=== PATIENT | female | born 1975 ===

== ENCOUNTER 2024-11-25 12:00 | Inpatient (IN) | payer OTHER ==
[~2024-11-25] VITALS: Ht 157.5 cm; Wt 69.9 kg
[2024-11-25] MEDS ORDERED: CLONAZEPAM0.5 M1 PO (13:50)
[2024-11-25] MEDS ORDERED: BUSPIRONE HCL10 MG PO (13:51)
[2024-11-25] MEDS ORDERED: FLONASE16 GM (13:51)
[2024-11-25] MEDS ORDERED: BREO ELLIPTA 21 EACH IH (13:53)
[2024-11-25] MEDS ORDERED: MAXALT10 MG PO (13:54)
[2024-11-25] MEDS ORDERED: ATORVASTATIN CA10 MG PO (13:54)
[2024-11-25] MEDS ORDERED: CYMBALTA60 MG PO (13:54)
[2024-11-25] MEDS ORDERED: PREVACID15 M1 PO (13:55)
[2024-12-01] MEDS ORDERED: METRONIDAZOLE/SODIUM CHLORIDE 500 MG/100 ML PIGGYBACK IV ONE (10:20)
[2024-12-01] MEDS ORDERED: CEFTRIAXONE SODIUM 2,000 MG VIAL ONE (10:20)
[2024-12-01] MEDS ORDERED: LIDOCAINE HCL 1%/EPINEPHRINE 20ML VIAL IJ ONE (11:13)
[2024-12-01] MEDS ORDERED: BUPIVACAINE HCL/MPF 0.5% 30ML VIAL ONE (11:13)
[2024-12-01] MEDS ORDERED: HYOSCYAMINE SULFATE 0.125 MG TAB.SUBL SL SCH (17:00)
[2024-12-01] MEDS ORDERED: CELECOXIB 200 MG CAPSULE PO SCH (17:00)
[2024-12-01] MEDS ORDERED: GABAPENTIN 300 MG CAPSULE PO SCH (17:00)
[2024-12-01] MEDS ORDERED: POLYETHYLENE GLYCOL 3350 17 GM BLIST.PACK PO SCH (17:00)
[2024-12-01] MEDS ORDERED: RINGERS SOLUTION,LACTATED 1,000 ML IV SCH (17:00)
[2024-12-01] MEDS ORDERED: MORPHINE SULFATE 4 MG/ML CARTRIDGE IV PRN (17:00)
[2024-12-01] MEDS ORDERED: OxyCODONE HCL 5 MG TABLET (ROXICODONE) PO PRN (17:00)
[2024-12-01] MEDS ORDERED: METOCLOPRAMIDE HCL 5 MG/ML VIAL IV SCH (17:00)
[2024-12-01] MEDS ORDERED: ONDANSETRON HCL 2 MG/ML VIAL IV PRN (17:00)
[2024-12-01] MEDS ORDERED: SIMETHICONE 125 MG CAPSULE PO SCH (17:00)
[2024-12-01] MEDS ORDERED: ONDANSETRON HCL 2 MG/ML VIAL IV ONE (17:30)
[2024-12-01] MEDS ORDERED: MORPHINE SULFATE 4 MG/ML VIAL IV ONE (17:30)
[2024-12-01] MEDS ORDERED: ONDANSETRON HCL 2 MG/ML VIAL ONE (17:32)
[2024-12-01 17:44] LABS: HEMATOCRIT 41.3 % (36.0-45.00); HEMOGLOBIN 14.1 g/dL (12.0-15.00); MEAN CELL VOLUME 91.2 fL (80.00-100.00); MEAN CORPUSCULAR HEMOGLOBIN 31.2 pg (27.00-32.0); MEAN CORPUSCULAR HGB CONC 34.2 g/dl (32.0-36.0); PLATELET COUNT 156 K/uL (150-450); RED BLOOD COUNT 4.53 M/uL (4.00-6.00); RED CELL DISTRIBUTION WIDTH 13.8 % (11.5-14.5)
[2024-12-01] MEDS ORDERED: METOCLOPRAMIDE HCL 5 MG/ML VIAL ONE (17:54)
[2024-12-01 18:35] VITALS: BP 144/84; O2SAT 98
[2024-12-01] MEDS ORDERED: ACETAMINOPHEN 500 MG GEL..CAP PO SCH (20:00)
[2024-12-01] MEDS ORDERED: ALBUTEROL SULFATE 3 ML/2.5 MG AMPUL.NEB IH SCH (20:12)
[2024-12-01] MEDS ORDERED: FAMOTIDINE/PF 20 MG/2 ML VIAL IV PUSH SCH (21:00)
[2024-12-01 23:00] VITALS: O2SAT 94
[2024-12-02] VITALS (9 sets, daily range): BP systolic 117–136; BP diastolic 74–82; O2SAT 90–98
[2024-12-02 07:59] LABS: HEMATOCRIT 40.2 % (36.0-45.00); HEMOGLOBIN 13.7 g/dL (12.0-15.00); MEAN CELL VOLUME 91.5 fL (80.00-100.00); MEAN CORPUSCULAR HEMOGLOBIN 31.3 pg (27.00-32.0); MEAN CORPUSCULAR HGB CONC 34.2 g/dl (32.0-36.0); PLATELET COUNT 162 K/uL (150-450); RED BLOOD COUNT 4.39 M/uL (4.00-6.00); RED CELL DISTRIBUTION WIDTH 13.5 % (11.5-14.5)
[2024-12-02 08:23] LABS: ALBUMIN 3.6 gm/dL (3.4-5.0); CALCIUM 8.6 mg/dL (8.5-10.1); CREATININE SERUM 0.76 mg/dL (0.55-1.02); GFR 80.23; MAGNESIUM 1.9 mg/dL (1.8-2.4); PHOSPHOROUS 2.9 mg/dL (2.5-4.9); POTASSIUM 3.94 mEq/L (3.5-5.1)
[2024-12-02] MEDS ORDERED: LACTOBACILLUS ACIDOPHILUS 1 CAP CAP PO SCH (09:00)
[2024-12-02] MEDS ORDERED: PATIENTS OWN MEDICATION (MEDICAMENTO EN PISO) PO SCH (09:00)
[2024-12-02] MEDS ORDERED: Pregabalin 50 MG,Pregabalin 25 MG PO SCH (09:00)
[2024-12-02] MEDS ORDERED: LACTULOSE 20 G/30 ML BLIST.PACK PO SCH (09:00)
[2024-12-02] MEDS ORDERED: Pregabalin 25 MG CAPSULE PO SCH (09:00)
[2024-12-02 10:32] LABS: ABG PH 7.421 (7.35-7.45); ABG PO2 77.4 mmHg (80-100); ABG pCO2 40.6 mmHg (35-45); BASE EXCESS 1.3 mmol/l; BICARBONATE 25.8 mmol/l (23-25); SaO2 95.6 %; Tco2 27.1 mmol/l
[2024-12-02 10:35] LABS: allen test SATISFACTORY; mode ROOM AIR; o2 21 %; puncture site RADIAL RIGHT
[2024-12-02] MEDS ORDERED: ENOXAPARIN SODIUM 40 MG/0.4 ML SYRINGE SUBCUTANEO SCH (17:00)
[2024-12-02] MEDS ORDERED: ATORVASTATIN CALCIUM 10 MG TABLET PO SCH (17:00)
[2024-12-03] VITALS (8 sets, daily range): BP systolic 110–123; BP diastolic 67–79; O2SAT 89–99
[2024-12-03 08:18] LABS: HEMATOCRIT 35.6 % (36.0-45.00); HEMOGLOBIN 12.4 g/dL (12.0-15.00); MEAN CELL VOLUME 91.6 fL (80.00-100.00); MEAN CORPUSCULAR HEMOGLOBIN 31.8 pg (27.00-32.0); MEAN CORPUSCULAR HGB CONC 34.7 g/dl (32.0-36.0); PLATELET COUNT 145 K/uL (150-450); RED BLOOD COUNT 3.89 M/uL (4.00-6.00)
[2024-12-03] MEDS ORDERED: ENOXAPARIN SODIUM 40 MG/0.4 ML SYRINGE SUBCUTANEO SCH (09:00)
[2024-12-03 09:04] LABS: CALCIUM 8.2 mg/dL (8.5-10.1); CREATININE SERUM 0.72 mg/dL (0.55-1.02); GFR 85.4; PHOSPHOROUS 3.1 mg/dL (2.5-4.9); POTASSIUM 4.26 mEq/L (3.5-5.1)
[2024-12-04 00:45] VITALS: BP 95/59; O2SAT 96
[2024-12-04 00:50] VITALS: O2SAT 97
[2024-12-04 05:15] VITALS: O2SAT 97
[2024-12-04 08:00] VITALS: BP 127/81; O2SAT 98
[2024-12-04 09:35] VITALS: O2SAT 95
== END 2024-12-04 14:51 | disposition home or self-care (01) | DRG 330 ==
LOC: O/R 12-01 06:00 → SURH 12-01 07:00 → SURG 12-01 15:09 → SURH 12-01 20:19
PROVIDERS: Internal Medicine Geriatric Medicine; ADMIT Colon & Rectal Surgery; ATTEND Colon & Rectal Surgery
PROC: 0DBP4ZZ Excision of Rectum, Percutaneous Endoscopic Approach (ICD-10-PCS; 2024-12-01)
PROC: 0DJD8ZZ Inspection of Lower Intestinal Tract, Via Natural or Artificial Opening Endoscopic (ICD-10-PCS; 2024-12-01)
PROC: 4A12X4Z Monitoring of Cardiac Electrical Activity, External Approach (ICD-10-PCS; 2024-12-01)
PROC: 0DTN4ZZ Resection of Sigmoid Colon, Percutaneous Endoscopic Approach (ICD-10-PCS; principal; 2024-12-01 07:00)
DX: K57.20 Diverticulitis of large intestine with perforation and abscess without bleeding (principal); K92.1 Melena; K59.02 Outlet dysfunction constipation; G47.30 Sleep apnea, unspecified; N73.6 Female pelvic peritoneal adhesions (postinfective); N99.4 Postprocedural pelvic peritoneal adhesions